=== PATIENT | female | born 1950 | race Caucasian/White ===

== ENCOUNTER 2016-05-22 09:39 | Day surgery (SDC) | payer MEDICARE, OTHER ==
--- NOTE | ~2016-05-22 | EGD ---
EGD REPORT [facility] [address] [address] NAME: DAMIAN IRELAND : [birth year] STATUS : REG [facility]#: [id number] AGE: 66 ADM/REG DATE : 05/22/16 MR#: [id number] REPORT SERV DATE: 05/22/16 DICTATED BY: BRANDON YU DATE: 05/22/16 REPORT STATUS : Draft TRANSCRIBED BY: [facility] DATE: 05/22/16 Endoscopy Center Patient Name: Damian Ireland Date of : 1950 Attending MD: BRANDON YU MD Procedure Date No Time: 05/22/2016 Procedure: Upper GI endoscopy Indications: Dysphagia, Heartburn, Suspected esophageal reflux Referring MD: Sameer Gracia Medicines: as per anesthesia Complications: No immediate complications. Procedure: Pre-Anesthesia Assessment: - ASA Grade Assessment: III - A patient with severe systemic disease. After obtaining informed consent, the endoscope was passed under direct vision. Throughout the procedure, the patient's blood pressure, pulse, and oxygen saturations were monitored continuously. The GIF H190 [id number] was introduced through the mouth, and advanced to the third part of duodenum. The upper GI endoscopy was accomplished without difficulty. The patient tolerated the procedure. Findings: The examined esophagus was normal. The scope was withdrawn. Dilation was performed with a Hoffman dilator with no resistance at 44 Fr. A small hiatus hernia was present. The examined duodenum was normal. Impression: - Normal esophagus. Dilated. - Hiatus hernia. - Normal examined duodenum. Recommendation: - Follow an antireflux regimen. - Continue present medications. Procedure Code(s): --- Professional --- 01128, Esophagogastroduodenoscopy, flexible, transoral; diagnostic, including collection of specimen(s) by brushing or washing, when performed (separate procedure) 92060, Dilation of esophagus, by unguided sound or bougie, single or multiple passes Diagnosis Code(s): --- Professional --- K44.9, Diaphragmatic hernia without obstruction or EGD REPORT [facility] [address] [facility] [place]. [address] NAME: DAMIAN IRELAND : [birth year] STATUS : REG [facility] [place] PAT#: [id number] AGE: 66 ADM/REG DATE : 05/22/16 MR#: [id number] REPORT SERV DATE: 05/22/16 DICTATED BY: BRANDON YU. DATE: 05/22/16 REPORT STATUS : Draft TRANSCRIBED BY: [email or web address] DATE: 05/22/16 gangrene R13.10, Dysphagia, unspecified R12, Heartburn CPT copyright 2013 [employer]. All rights reserved. The codes documented in this report are preliminary and upon galvanometer assembler review may be revised to meet current compliance requirements. BRANDON YU MD 05/22/2016 11:09 AM This report has been signed electronically. Number of Addenda: 0 Note Initiated On: 05/22/2016 10:53 AM Scope Withdrawal Time 0 hours 0 minutes 0 seconds [address] [facility] [place] [address]
--- NOTE | ~2016-05-22 | EGD ---
EGD REPORT [facility] [address] [address] NAME: DAMIAN IRELAND : [birth year] STATUS : REG [facility] [place] PAT#: [id number] AGE: 66 ADM/REG DATE : 05/22/16 MR#: [id number] REPORT SERV DATE: 05/22/16 DICTATED BY: BRANDON YU DATE: 05/22/16 REPORT STATUS : Draft TRANSCRIBED BY: [facility] DATE: 05/22/16 Endoscopy Center Patient Name: Damian Ireland Date of : 1950 Attending MD: BRANDON YU MD Procedure Date No Time: 05/22/2016 Procedure: Colonoscopy Indications: Rectal bleeding, FH of Colonic Polyps - 1st degree relative, Constipation Referring MD: Sameer Gracia Medicines: as per anesthesia Complications: No immediate complications. Procedure: Pre-Anesthesia Assessment: - ASA Grade Assessment: III - A patient with severe systemic disease. After I obtained informed consent, the scope was passed under direct vision. Throughout the procedure, the patient's blood pressure, pulse, and oxygen saturations were monitored continuously. The PCF H190L [id number] was introduced through the anus and advanced to the cecum, identified by appendiceal orifice and ileocecal valve. The colonoscopy was performed without difficulty. The patient tolerated the procedure. The quality of the bowel preparation was adequate to identify polyps. Findings: The perianal and digital rectal examinations were normal. Internal hemorrhoids were found during endoscopy and were moderate. Impression: - Internal hemorrhoids. Recommendation: - Repeat colonoscopy in 5 years for surveillance. Procedure Code(s): --- Professional --- 68001, Colonoscopy, flexible, proximal to splenic flexure; diagnostic, with or without collection of specimen(s) by brushing or washing, with or without colon decompression (separate procedure) Diagnosis Code(s): --- Professional --- K64.8, Other hemorrhoids K62.5, Hemorrhage of anus and rectum Z83.71, Family history of colonic polyps K59.00, Constipation, unspecified EGD REPORT [facility] [address] [address] NAME: DAMIAN IRELAND : [birth year] STATUS : REG [facility] [place] PAT#: [id number] AGE: 66 ADM/REG DATE : 05/22/16 MR#: [id number] REPORT SERV DATE: 05/22/16 DICTATED BY: BRANDON YU. DATE: 05/22/16 REPORT STATUS : Draft TRANSCRIBED BY: [employer] DATE: 05/22/16 CPT copyright 2013 [employer]. All rights reserved. The codes documented in this report are preliminary and upon mobile phone salesperson review may be revised to meet current compliance requirements. BRANDON YU MD 05/22/2016 11:25 AM This report has been signed electronically. Number of Addenda: 0 Note Initiated On: 05/22/2016 10:50 AM Scope Withdrawal Time 0 hours 6 minutes 2 seconds [address] [address]
[~2016-05-22 09:39] MED LIST: ADVIL PO; ALEVE220 MG PO; ALLERGY INJ SQ; ASAB PO; ASMANEX INH; BEPREVE OPH; CALTRA600D PO; KLOR-CON 1010 MEQ PO; LIPO-FLAVONOID PO; MAX25 PO; METPAKSF PO; PATANASE0.6 % NAS; PVC V; VIRAMIST NAS; XYZAL5 MG PO; [UNRECOGNIZED DRUG - OTHER] NAS
== END 2016-05-22 23:59 | disposition home or self-care (01) ==
LOC: DMU 09:39
PROVIDERS: Internal Medicine Gastroenterology
PROC: 0DJD8ZZ Inspection of Lower Intestinal Tract, Via Natural or Artificial Opening Endoscopic (ICD-10-PCS; principal; 2016-05-22 11:00)
PROC: 0D758ZZ Dilation of Esophagus, Via Natural or Artificial Opening Endoscopic (ICD-10-PCS; 2016-05-22 11:00)
DX: K64.8 Other hemorrhoids (principal); K62.5 Hemorrhage of anus and rectum; Z83.71 Family history of colonic polyps; I10 Essential (primary) hypertension; K59.00 Constipation, unspecified; K21.9 Gastro-esophageal reflux disease without esophagitis; M19.90 Unspecified osteoarthritis, unspecified site; J45.909 Unspecified asthma, uncomplicated; R01.1 Cardiac murmur, unspecified; R13.10 Dysphagia, unspecified; H81.09 Meniere's disease, unspecified ear; R12 Heartburn; K44.9 Diaphragmatic hernia without obstruction or gangrene; G43.909 Migraine, unspecified, not intractable, without status migrainosus; Z98.41 Cataract extraction status, right eye; Z90.49 Acquired absence of other specified parts of digestive tract; Z98.890 Other specified postprocedural states; Z98.42 Cataract extraction status, left eye; Z90.710 Acquired absence of both cervix and uterus; Z96.1 Presence of intraocular lens; Z88.2 Allergy status to sulfonamides; Z91.041 Radiographic dye allergy status; Z79.899 Other long term (current) drug therapy